=== PATIENT | female | born 1950 | race Caucasian/White ===

== ENCOUNTER 2016-03-23 13:14 | Outpatient (CLI) | payer MEDICAID | END 2016-03-23 13:15 | disposition home or self-care (01) | DX: D05.91 Unspecified type of carcinoma in situ of right breast (principal) ==

== ENCOUNTER 2016-11-19 06:48 | Outpatient (CLI) | payer MEDICARE, MEDICAID ==
[2016-11-19 18:09] LABS: BASOPHILS # (AUTO) 0.1 10^3/uL (0.0-0.1); BASOPHILS % (AUTO) 1.5 %; EOSINOPHILS # (AUTO) 0.3 10^3/uL (0.0-0.7); EOSINOPHILS % (AUTO) 4.9 %; HCT - HEMATOCRIT 40.2 % (37.0-47.0); HGB - HEMOGLOBIN 13.1 g/dL (12.0-16.0); LYMPHOCYTES # (AUTO) 1.7 10^3/uL (1.5-3.5); LYMPHOCYTES % (AUTO) 26.8 %; MEAN CORPUSCULAR HEMOGLOBIN 29.2 pg (27.0-31.0); MEAN CORPUSCULAR HGB CONC 32.5 g/dL (32.0-36.0); MEAN CORPUSCULAR VOLUME 89.6 fL (81.0-99.0); MEAN PLATELET VOLUME 10.7 fL (7.9-10.8); MONOCYTES # (AUTO) 0.6 10^3/uL (0.0-1.0); MONOCYTES % (AUTO) 10.5 %; NEUTROPHILS # (AUTO) 3.5 10^3/uL (1.5-6.6); NEUTROPHILS % (AUTO) 56.3 %; NUCLEATED RED BLOOD CELLS AUTO 0.1 /100WBC; RED BLOOD COUNT 4.48 10^6/uL (4.20-5.40); RED CELL DISTRIBUTION WIDTH 14.4 % (12.0-15.0); UNCORRECTED WHITE BLOOD COUNT 6.2 x10^3/uL; WHITE BLOOD COUNT 6.2 x10^3/uL (4.8-10.8)
[2016-11-19 18:32] LABS: ALBUMIN/GLOBULIN RATIO 1.5 (1.0-2.2); BILIRUBIN,TOTAL 0.4 mg/dL (0.2-1.0); BUN - BLOOD UREA NITROGEN 10 mg/dL (6-20); CALCIUM 9.4 mg/dL (8.5-10.3); CARBON DIOXIDE - CO2 26 mmol/L (21-32); CHLORIDE 103 mmol/L (101-111); CHOL/HDL RATIO 4.6 (<4.4); CHOLESTEROL 264 mg/dL; CREATININE 0.7 mg/dL (0.4-1.0); GFR - MDRD 84 (>89); GLUCOSE 93 mg/dL (70-100); HDL CHOLESTEROL 57 mg/dL; POTASSIUM 4.5 mmol/L (3.5-5.0); SODIUM 136 mmol/L (135-145); TOTAL PROTEIN 6.6 g/dL (6.7-8.2); TRIGLYCERIDES 183 mg/dL; VLDL CHOLESTEROL 37 mg/dL
== END 2016-11-19 06:49 | disposition home or self-care (01) ==
LOC: LAB.S 06:48
PROVIDERS: ATTEND Nurse Practitioner Family
DX: I10 Essential (primary) hypertension (principal); J44.9 Chronic obstructive pulmonary disease, unspecified
CPT/HCPCS: 36415; 80053; 80061; 84443; 85025

== ENCOUNTER 2017-04-03 14:04 | Outpatient (CLI) | payer MEDICARE, MEDICAID ==
--- NOTE | 2017-04-04 21:29 | Mammography Report ---
DATE OF SERVICE: 04/03/2017 DIGITAL SCREENING MAMMOGRAM: 04/03/2017 CLINICAL INDICATION: A 66-year-old with personal history of right breast cancer, status post lumpectomy and radiation therapy for screening. COMPARISON: 03/2016, 03/2015, 03/2014, 09/2013, 03/2013, 09/2012, 03/2012, 09/2011, 06/2011, 05/2011. TECHNIQUE: Routine CC and MLO projections were obtained of the breasts. The breasts demonstrate scattered fibroglandular densities bilaterally. Postoperative and posttreatment changes in the left breast are stable. A few punctate, typically benign calcifications are present. No suspicious masses, clustered microcalcifications, or regions of architectural distortion are identified. IMPRESSION: Benign findings. RECOMMENDATIONS: Routine annual screening unless otherwise clinically indicated. BIRADS category 2 benign findings. STANDARD QUALIFYING STATEMENTS 1. This examination was reviewed with the aid of Computed-Aided Detection (CAD). 2. A negative or benign imaging report should not delay biopsy if clinically suspicious findings are present. Consider surgical consultation if warranted. More than 5% of cancers are not identified by imaging. 3. Dense breasts may obscure an underlying neoplasm. TD: 04/04/2017 22:28
== END 2017-04-03 14:05 | disposition home or self-care (01) ==
LOC: DI.S 14:04
PROVIDERS: ATTEND Nurse Practitioner Family
DX: Z12.31 Encounter for screening mammogram for malignant neoplasm of breast (principal); Z85.3 Personal history of malignant neoplasm of breast
CPT/HCPCS: 77067

== ENCOUNTER → 2018-01-06 | Outpatient (CLI) | payer MEDICARE, MEDICAID ==
[2018-01-06 17:20] LABS: BASOPHILS # (AUTO) 0.1 10^3/uL (0.0-0.1); BASOPHILS % (AUTO) 1.2 %; EOSINOPHILS # (AUTO) 0.5 10^3/uL (0.0-0.7); EOSINOPHILS % (AUTO) 6.5 %; HGB - HEMOGLOBIN 13.7 g/dL (12.0-16.0); LYMPHOCYTES # (AUTO) 1.6 10^3/uL (1.5-3.5); MEAN CORPUSCULAR HEMOGLOBIN 29.9 pg (27.0-31.0); MEAN CORPUSCULAR VOLUME 90.6 fL (81.0-99.0); MEAN PLATELET VOLUME 11.2 fL (7.9-10.8); MONOCYTES # (AUTO) 0.9 10^3/uL (0.0-1.0); MONOCYTES % (AUTO) 11.6 %; NEUTROPHILS # (AUTO) 4.3 10^3/uL (1.5-6.6); NEUTROPHILS % (AUTO) 58.7 %; PLT - PLATELET COUNT 235 10^3/uL (130-450); RED BLOOD COUNT 4.58 10^6/uL (4.20-5.40); RED CELL DISTRIBUTION WIDTH 13.5 % (12.0-15.0); WHITE BLOOD COUNT 7.3 x10^3/uL (4.8-10.8)
[2018-01-06 17:48] LABS: ALBUMIN 3.9 g/dL (3.2-5.5); ALBUMIN/GLOBULIN RATIO 1.2 (1.0-2.2); ALKALINE PHOSPHATASE 55 IU/L (42-121); ALT ALANINE AMINOTRANSFERASE 16 IU/L (10-60); AST ASPARTATE AMINOTRANSFERASE 21 IU/L (10-42); BILIRUBIN,TOTAL 0.3 mg/dL (0.2-1.0); BUN - BLOOD UREA NITROGEN 12 mg/dL (6-20); CALCIUM 9.4 mg/dL (8.5-10.3); CARBON DIOXIDE - CO2 29 mmol/L (21-32); CHLORIDE 102 mmol/L (101-111); CHOL/HDL RATIO 4.4 (<4.4); CHOLESTEROL 279 mg/dL; CREATININE 0.8 mg/dL (0.4-1.0); GFR - MDRD 72 (>89); GLUCOSE 108 mg/dL (70-100); HDL CHOLESTEROL 64 mg/dL; LDL CHOLESTEROL,CALCULATED 177 mg/dL; LDL/HDL RATIO 2.8 (<4.4); SODIUM 137 mmol/L (135-145); TOTAL PROTEIN 7.2 g/dL (6.7-8.2); VLDL CHOLESTEROL 38 mg/dL
== END ==
LOC: LAB.S 13:43
PROVIDERS: ATTEND Nurse Practitioner Family
DX: I10 Essential (primary) hypertension (principal); F32.9 Major depressive disorder, single episode, unspecified
CPT/HCPCS: 36415; 80053; 80061; 83721; 84443; 85025

== ENCOUNTER 2018-03-09 12:01 | Outpatient (CLI) | payer MEDICARE, MEDICAID | END 2018-03-09 23:59 | disposition critical access hospital (66) | LOC: EMS 12:01 | PROVIDERS: ATTEND Surgery | DX: K62.5 Hemorrhage of anus and rectum (principal) | CPT/HCPCS: A0425; A0427 ==

== ENCOUNTER 2018-03-09 12:36 | Emergency (ER) | payer MEDICARE, MEDICAID ==
[2018-03-09] MEDS ORDERED: ONDANSETRON 4 MG/2 ML VIAL IVP STA (12:48)
[2018-03-09] MEDS ORDERED: MORPHINE 2 MG/ML CARPUJECT IVP STA (12:48)
[2018-03-09] MEDS ORDERED: SODIUM CHLORIDE 0.9% 1,000 ML IV ONE (12:48)
--- NOTE | 2018-03-09 12:50 | ED Physician Documentation ---
PD HPI ABD PAIN - Stated complaint Stated Complaint: ABD PX - Chief complaint Chief Complaint: Abd Pain - History obtained from History obtained from: Patient, EMS - History of Present Illness Timing - onset: Other (She been constipated for a few days but starting around 10:00 last night started to have severe abdominal cramps associated with vomiting and diarrhea. She has not vomited in almost 12 hours but the diarrhea continues and became grossly bloody this morning. She denies any fevers. No recent travel, sick contacts, or antibiotic use. She is a history of hysterectomy but no other abdominal surgeries or bowel problems.) Review of Systems Ten Systems: 10 systems reviewed and negative Constitutional: denies: Fever, Chills Eyes: reports: Reviewed and negative GI: reports: Abdominal Pain, Nausea, Vomiting, Diarrhea, Bloody / black stool. 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 HEENT: None Psych: Panic attacks Musculoskeletal: Osteoarthritis Derm: None - Past Surgical History Past Surgical History: Yes General: Colonoscopy Ortho: Spine surgery /EXHIBITION DESIGNER: section, Dilation and currettage, Tubal ligation, Hysterectomy, LEEP (Cervical surgery) HEENT: Tonsil/Adenoidectomy - Present Medications Home Medications: Ambulatory Orders Medication Instructions Recorded Confirmed Lisinopril 40 mg PO DAILY 07/16/12 12/10/16 Multivitamin [Multivitamins] 1 each PO DAILY 09/28/13 12/10/16 Carvedilol 12.5 mg PO BID 04/13/14 12/10/16 Calcium Carb, Citrate/Vit D3 600 mg PO BID 10/12/14 12/10/16 [Calcium + D3 ER Tablet] Albuterol 2.5 mg INH Q4H PRN 02/20/16 03/09/18 Albuterol Sulf [Ventolin Hfa 2 puffs INH Q4H PRN 02/20/16 03/09/18 Inhaler] Tiotropium [place] [Spiriva] 2 puffs IH DAILY 02/20/16 12/10/16 buPROPion [Wellbutrin Sr] 150 mg PO BID 12/10/16 12/10/16 Ciprofloxacin HCl [Cipro] 500 mg PO BID #20 tablet 03/09/18 Hydrocodone/Acetaminophen 1 - 2 each PO Q6H PRN #10 tablet 03/09/18 [Hydrocodon-Acetaminophen 5-325] Metronidazole [Flagyl] 500 mg PO BID #20 tablet 03/09/18 amLODIPine [Norvasc] 5 mg PO DAILY 03/09/18 03/09/18 - Allergies Allergies/Adverse Reactions: Allergies Allergy/AdvReac Type Severity Reaction Status Date / Time Latex, Natural Rubber Allergy Itching Verified 03/09/18 12:49 Penicillins Allergy Hives Verified 03/09/18 12:49 adhesive AdvReac Intermediate Rash Verified 03/09/18 12:49 - Social History Does the pt smoke?: Yes Smoking Status: Current every day smoker Does the pt drink ETOH?: No Does the pt have substance abuse?: No - Immunizations Immunizations are current?: No Immunizations: TDAP >10years/unknown PD ED PE NORMAL - Vitals Vital signs reviewed: Yes (Hypertensive and tachycardic) - General General: Alert and oriented X 3, No acute distress - HEENT HEENT: PERRL, EOMI - Neck Neck: Supple, no meningeal sign, No bony TTP - Cardiac Cardiac: RRR, No murmur - Respiratory Respiratory: No respiratory distress, Clear bilaterally - Abdomen Abdomen: Other (Soft with slightly diminished but active bowel tones and left- sided abdominal tenderness without surgical signs) - Back Back: No spinal TTP - Derm Derm: Normal color, Warm and dry - Extremities Extremities: No edema, No calf tenderness / cord - Neuro Neuro: Alert and oriented X 3, Normal speech - Psych Psych: Normal mood, Normal affect Results - Vitals Vitals: Vital Signs - 24 hr 03/09/18 12:39 Temperature 37 C Heart Rate 115 H Respiratory 20 Rate Blood Pressure 187/114 H O2 Saturation 98 Oxygen O2 Source Room air - Labs Labs: Microbiology 03/09/18 13:13 Campylobacter Antigen Assay - Final Stool Laboratory Tests 03/09/18 03/09/18 03/09/18 12:59 12:59 12:59 WBC 19.2 H RBC 5.32 Hgb 16.2 H Hct 48.2 H MCV 90.7 MCH 30.5 MCHC 33.6 RDW 13.9 Plt Count 246 MPV 9.1 Neut # (Auto) 16.5 H Lymph # (Auto) 1.0 L [place] # (Auto) 1.6 H Eos # (Auto) 0.0 Baso # (Auto) 0.1 Absolute Nucleated RBC 0.00 Nucleated RBC % 0.0 PT 12.1 INR 1.1 Sodium 135 Potassium 3.9 Chloride 98 L Carbon Dioxide 26 Anion Gap 11.0 BUN 15 Creatinine 0.9 Estimated GFR (MDRD) 63 L Glucose 157 H Lactic Acid Calcium 9.1 Total Bilirubin 0.8 AST 31 ALT 28 Alkaline Phosphatase 59 Total Protein 7.5 Albumin 4.0 Globulin 3.5 Albumin/Globulin Ratio 1.1 Lipase 24 Urine Color Urine Clarity Urine pH Ur Specific [place] Urine Protein Urine Glucose (UA) Urine Ketones Urine Occult Blood Urine Nitrite Urine Bilirubin Urine Urobilinogen Ur Leukocyte Esterase Ur Microscopic Review Urine Culture Comments 03/09/18 03/09/18 12:59 13:13 WBC RBC Hgb Hct MCV MCH MCHC RDW Plt Count MPV Neut # (Auto) Lymph # (Auto) [place] # (Auto) Eos # (Auto) Baso # (Auto) Absolute Nucleated RBC Nucleated RBC % PT INR Sodium Potassium Chloride Carbon Dioxide Anion Gap BUN Creatinine Estimated GFR (MDRD) Glucose Lactic Acid 1.4 Calcium Total Bilirubin AST ALT Alkaline Phosphatase Total Protein Albumin Globulin Albumin/Globulin Ratio Lipase Urine Color DARK YELLOW Urine Clarity CLEAR Urine pH 6.0 Ur Specific [place] 1.020 Urine Protein NEGATIVE Urine Glucose (UA) NEGATIVE Urine Ketones 15 H Urine Occult Blood NEGATIVE Urine Nitrite NEGATIVE Urine Bilirubin NEGATIVE Urine Urobilinogen 0.2 (NORMAL) Ur Leukocyte Esterase NEGATIVE Ur Microscopic Review NOT INDICATED Urine Culture Comments NOT INDICATED - Rads (name of study) CT A/P Radiology: EMP read contemporaneously (Transverse descending and sigmoid coliti s) PD MEDICAL DECISION MAKING - ED course ED course: 67-year-old woman with bloody diarrhea and left-sided abdominal tenderness cons istent with colitis which is corroborated on CT. Feeling better after meds and fluids here and will be treated with Cipro and Flagyl. Departure - Departure Disposition: 01 Home, Self Care Clinical Impression: Colitis Abdominal pain Qualifiers: Abdominal location: generalized Qualified Code(s): R10.84 - Generalized abdominal pain Condition: Good Record reviewed to determine appropriate education?: Yes Instructions: ED Diarrhea Bacterial Prescriptions: Ciprofloxacin HCl [Cipro] 500 mg PO BID #20 tablet Hydrocodone/Acetaminophen [Hydrocodon-Acetaminophen 5-325] 1 - 2 each PO Q6H PRN #10 tablet PRN Reason: pain Metronidazole [Flagyl] 500 mg PO BID #20 tablet Comments: Call your doctor to arrange a follow-up appointment, make the next available appointment. In the interim, return anytime if worse or if new symptoms develop. Your blood pressure was elevated today on check into the emergency department. This does not mean that you have hypertension, it is a common phenomenon to come to the emergency department and have elevated blood pressure. I recommend that you see your primary care physician within the week to have it rechecked when you are feeling better.
[2018-03-09 13:13] LABS: INR 1.1 (0.8-1.2); PT - PROTHROMBIN TIME 12.1 secs (9.9-12.6)
[2018-03-09 13:16] LABS: BASOPHILS # (AUTO) 0.1 10^3/uL (0.0-0.1); BASOPHILS % (AUTO) 0.3 %; EOSINOPHILS % (AUTO) 0.1 %; HGB - HEMOGLOBIN 16.2 g/dL (12.0-16.0); LYMPHOCYTES % (AUTO) 5.2 %; MEAN CORPUSCULAR HEMOGLOBIN 30.5 pg (27.0-31.0); MEAN CORPUSCULAR HGB CONC 33.6 g/dL (32.0-36.0); MEAN CORPUSCULAR VOLUME 90.7 fL (81.0-99.0); MEAN PLATELET VOLUME 9.1 fL (7.9-10.8); MONOCYTES # (AUTO) 1.6 10^3/uL (0.0-1.0); MONOCYTES % (AUTO) 8.4 %; NEUTROPHILS # (AUTO) 16.5 10^3/uL (1.5-6.6); PLT - PLATELET COUNT 246 10^3/uL (130-450); RED BLOOD COUNT 5.32 10^6/uL (4.20-5.40); RED CELL DISTRIBUTION WIDTH 13.9 % (12.0-15.0); WHITE BLOOD COUNT 19.2 x10^3/uL (4.8-10.8)
[2018-03-09 13:20] LABS: BILIRUBIN,URINE NEGATIVE (NEGATIVE); GLUCOSE, URINE (UA) NEGATIVE (NEGATIVE); KETONES,URINE (UA) 15 mg/dL (NEGATIVE); LEUKOCYTE ESTERASE, URINE NEGATIVE (NEGATIVE); NITRITE,URINE NEGATIVE (NEGATIVE); OCCULT BLOOD,URINE NEGATIVE (NEGATIVE); PROTEIN,URINE NEGATIVE (NEGATIVE); UROBILINOGEN,URINE 0.2 (NORMAL) E.U./dL (NORMAL)
[2018-03-09 13:20] LABS: ALBUMIN/GLOBULIN RATIO 1.1 (1.0-2.2); BILIRUBIN,TOTAL 0.8 mg/dL (0.2-1.0); CALCIUM 9.1 mg/dL (8.5-10.3); CREATININE 0.9 mg/dL (0.4-1.0); TOTAL PROTEIN 7.5 g/dL (6.7-8.2)
[2018-03-09 13:21] LABS: CLARITY,URINE CLEAR (CLEAR)
[2018-03-09] MEDS ORDERED: IOVERSOL 320 100 ML VIAL IVP ONE ×2 (13:33→14:02)
--- NOTE | 2018-03-09 14:59 | CT Report ---
Reason: IV only, abd pain w hematochezia Procedure Date: 03/09/2018 Accession Number: [id number] / [id number] Procedure: CT - Abdomen/Pelvis W/ CPT Code: FULL RESULT: EXAM: CT ABDOMEN AND PELVIS EXAM DATE: 03/09/2018 01:44 PM. CLINICAL HISTORY: Abd pain w hematochezia. COMPARISONS: None. TECHNIQUE: Routine helical CT imaging was performed through the abdomen and pelvis. IV contrast: OPTI 320 100mL. Enteric contrast: No. Reconstructions: Coronal and sagittal. In accordance with CT protocol optimization, one or more of the following dose reduction techniques were utilized for this exam: automated exposure control, adjustment of mA and/or KV based on patient size, or use of iterative reconstructive technique. FINDINGS: Lung Bases: Unremarkable. Liver: Probable hepatic steatosis. No focal parenchymal lesion demonstrated. Gallbladder/Bile Ducts: Unremarkable. Spleen: Normal. Pancreas: Atrophic. No other significant abnormality. Adrenal Glands: Normal. Kidneys: No significant abnormality. Peritoneal Cavity/Bowel: No ascites or pneumoperitoneum. No bowel obstruction or abnormal stool burden. Diffuse, low density colonic wall thickening and adjacent mild inflammatory stranding from the hepatic flexure to the rectosigmoid junction, most pronounced in the distal transverse colon. Possible appendicolith; otherwise normal appendix (coronal images 21-25). Pelvic Organs: Status post hysterectomy. The urinary bladder is unremarkable. Vasculature: Moderate atherosclerosis without aneurysm or other significant abnormality. Bones: Scoliosis and degenerative change. No acute osseous abnormality or aggressive osseous lesion. Other: None. IMPRESSION: Transverse, descending, and sigmoid colitis. RADIA
[2018-03-09] MEDS ORDERED: CIPROFLOXACIN 250 MG TABLET PO STA (15:07)
[2018-03-09] MEDS ORDERED: metroNIDAZOLE 250 MG TABLET PO STA (15:07)
[2018-03-09 15:44] VITALS: BP 152/82
== END 2018-03-09 15:25 | disposition home or self-care (01) ==
LOC: EDUNIT# → ED 12:36
DX: K52.9 Noninfective gastroenteritis and colitis, unspecified (principal); R10.84 Generalized abdominal pain; I10 Essential (primary) hypertension; F17.200 Nicotine dependence, unspecified, uncomplicated
CPT/HCPCS: 36415; 74177; 80053; 81003; 83605; 83690; 85025; 85610; 87045; 87046; 87493; 96361; 96374; 96375; 99283; A9270; Q9967; 81001; 87086

== ENCOUNTER 2018-03-24 08:00 | Outpatient (CLI) | payer MEDICARE, MEDICAID ==
[2018-03-24 18:11] LABS: BASOPHILS # (AUTO) 0.1 10^3/uL (0.0-0.1); BASOPHILS % (AUTO) 1.4 %; EOSINOPHILS # (AUTO) 0.5 10^3/uL (0.0-0.7); HGB - HEMOGLOBIN 14.2 g/dL (12.0-16.0); LYMPHOCYTES # (AUTO) 1.6 10^3/uL (1.5-3.5); LYMPHOCYTES % (AUTO) 18.3 %; MEAN CORPUSCULAR HEMOGLOBIN 30.1 pg (27.0-31.0); MEAN CORPUSCULAR HGB CONC 32.4 g/dL (32.0-36.0); MEAN PLATELET VOLUME 11.5 fL (7.9-10.8); MONOCYTES # (AUTO) 0.8 10^3/uL (0.0-1.0); MONOCYTES % (AUTO) 9.3 %; NEUTROPHILS # (AUTO) 5.8 10^3/uL (1.5-6.6); PLT - PLATELET COUNT 278 10^3/uL (130-450); RED CELL DISTRIBUTION WIDTH 14.5 % (12.0-15.0); WHITE BLOOD COUNT 8.9 x10^3/uL (4.8-10.8)
[2018-03-24 18:42] LABS: ALBUMIN 3.8 g/dL (3.2-5.5); ALBUMIN/GLOBULIN RATIO 1.2 (1.0-2.2); BILIRUBIN,TOTAL 0.4 mg/dL (0.2-1.0); CALCIUM 9.8 mg/dL (8.5-10.3); CREATININE 0.6 mg/dL (0.4-1.0)
== END 2018-03-24 23:59 | disposition home or self-care (01) ==
LOC: LAB.S 08:00
PROVIDERS: ATTEND Nurse Practitioner Family
DX: K52.9 Noninfective gastroenteritis and colitis, unspecified (principal)
CPT/HCPCS: 36415; 80053; 85025

== ENCOUNTER 2018-05-05 16:04 | Outpatient (CLI) | payer MEDICARE, MEDICAID ==
--- NOTE | 2018-05-06 08:14 | Mammography Report ---
Reason: MAMMOGRAPHIC SCREENING FOR BREAST CANCER Procedure Date: 05/05/2018 Accession Number: [id number] / [id number] Procedure: MARIE - Screening Mammo w/Julio CPT Code: FULL RESULT: EXAM: Screening Mammo w/Julio DATE: 05/05/2018 4:30 PM CLINICAL HISTORY: Screening encounter. Personal history of right breast cancer status post lumpectomy and radiation as well as personal history of lung cancer status post right upper lobectomy. TECHNIQUE: Bilateral CC and MLO views were obtained. COMPARISON: 04/03/2017 through 04/08/2014. FINDINGS: The breasts demonstrate scattered fibroglandular densities bilaterally. Posttreatment changes in the right breast are stable. No suspicious masses, clustered microcalcifications, or regions of architectural distortion are identified. IMPRESSION: Benign findings RECOMMENDATION: Routine annual screening unless otherwise clinically indicated. BIRADS CATEGORY 2: Benign findings STANDARD QUALIFYING STATEMENTS: 1. This examination was not reviewed with the aid of Computer-Aided Detection (CAD). 2. A negative or benign imaging report should not delay biopsy if clinically suspicious findings are present. Consider surgical consultation if warrented. More than 5% of cancers are not identified by imaging. 3. Dense breasts may obscure an underlying neoplasm. 4. This examination was reviewed with the aid of 3D breast imaging (tomosynthesis).
== END 2018-05-05 16:05 | disposition home or self-care (01) ==
LOC: DI 16:04
PROVIDERS: ATTEND Nurse Practitioner Family
DX: Z12.31 Encounter for screening mammogram for malignant neoplasm of breast (principal); Z85.3 Personal history of malignant neoplasm of breast; Z85.118 Personal history of other malignant neoplasm of bronchus and lung
CPT/HCPCS: 77063; 77067

== ENCOUNTER 2018-07-01 08:21 | Outpatient (CLI) | payer MEDICARE, MEDICAID ==
--- NOTE | 2018-07-01 11:38 | Ultrasound Report ---
Reason: CT- COLON WALL THICKENING FROM DISTAL Procedure Date: 07/01/2018 Accession Number: [id number] / [id number] Procedure: US - Arterial Visceral Complete CPT Code: FULL RESULT: EXAM: MESENTERIC/CELIAC ARTERY DOPPLER ULTRASOUND EXAM DATE: 07/01/2018 09:52 AM. CLINICAL HISTORY: CT- Colon wall thickening from distal. COMPARISON: None. TECHNIQUE: Real-time sonographic vascular imaging was performed by the formal waiter/waitress through the mesenteric arterial system with a linear transducer utilizing color-flow, Doppler flow and spectral analysis. Multiple inbound call center representative static images were saved for review. FINDINGS: The upper abdominal aorta is visually atherosclerotic without visualized aneurysm in the documented areas. The visualized celiac axis, SMA, hepatic artery and splenic artery are patent with peak systolic velocities as described. All waveforms demonstrate preserved brisk systolic upstrokes. Aorta: 71cm/sec. Celiac [place]: Proximal: 158.6 cm/sec. Mid: 168.7 cm/sec. Distal: 195.6 cm/sec. Hepatic Artery: 228 cm/sec.* Splenic Artery: 67.4 cm/sec. * Hepatic artery @ anthony hep 113 cm/sec. Splenic not seen @ lucinda axis. Superior Mesenteric Artery Proximal: 122.5 cm/sec. Mid: 108 cm/sec. Distal: 105.4 cm/sec. Inferior Mesenteric Artery: Not seen. IMPRESSION: Normal patency and waveforms of the above visualized visceral vasculature. RADIA
== END 2018-07-01 08:22 | disposition home or self-care (01) ==
LOC: DI 08:21
PROVIDERS: ATTEND Internal Medicine
DX: R93.5 Abnormal findings on diagnostic imaging of other abdominal regions, including retroperitoneum (principal)
CPT/HCPCS: 93975

== ENCOUNTER 2018-08-11 09:50 | Outpatient (CLI) | payer MEDICARE, MEDICAID ==
[2018-08-11 18:44] LABS: CHOL/HDL RATIO 3.2 (<4.4); CHOLESTEROL 202 mg/dL; HDL CHOLESTEROL 64 mg/dL; LDL CHOLESTEROL,CALCULATED 124 mg/dL; LDL/HDL RATIO 1.9 (<4.4); VLDL CHOLESTEROL 14 mg/dL
== END 2018-08-11 09:51 | disposition home or self-care (01) ==
LOC: LAB.F 09:50
PROVIDERS: ATTEND Nurse Practitioner
DX: E78.5 Hyperlipidemia, unspecified (principal)
CPT/HCPCS: 36415; 80061; 83721

== ENCOUNTER 2018-08-19 19:45 | Emergency (ER) | payer MEDICARE, MEDICAID ==
[2018-08-19 20:19] LABS: BILIRUBIN,URINE NEGATIVE (NEGATIVE); GLUCOSE, URINE (UA) NEGATIVE (NEGATIVE); KETONES,URINE (UA) 15 mg/dL (NEGATIVE); LEUKOCYTE ESTERASE, URINE TRACE (NEGATIVE); NITRITE,URINE NEGATIVE (NEGATIVE); OCCULT BLOOD,URINE NEGATIVE (NEGATIVE); PH,URINE 5.5 PH (5.0-7.5); PROTEIN,URINE NEGATIVE (NEGATIVE); UROBILINOGEN,URINE 0.2 (NORMAL) E.U./dL (NORMAL)
[2018-08-19 20:23] LABS: CLARITY,URINE CLEAR (CLEAR)
[2018-08-19 20:29] LABS: RBC,URINE 0-5 /HPF (0-5); SQUAMOUS EPITHELIAL CELL,UR FEW Squamous (<= Few)
[2018-08-19 20:30] LABS: BACTERIA,URINE Rare /HPF (None Seen)
[2018-08-19 20:39] LABS: BASOPHILS # (AUTO) 0.1 10^3/uL (0.0-0.1); BASOPHILS % (AUTO) 0.9 %; EOSINOPHILS # (AUTO) 0.6 10^3/uL (0.0-0.7); LYMPHOCYTES # (AUTO) 1.5 10^3/uL (1.5-3.5); LYMPHOCYTES % (AUTO) 13.9 %; MEAN CORPUSCULAR HEMOGLOBIN 29.6 pg (27.0-31.0); MEAN CORPUSCULAR HGB CONC 33.2 g/dL (32.0-36.0); MEAN CORPUSCULAR VOLUME 89.2 fL (81.0-99.0); MEAN PLATELET VOLUME 8.6 fL (7.9-10.8); MONOCYTES % (AUTO) 8.7 %; NEUTROPHILS % (AUTO) 71.5 %; PLT - PLATELET COUNT 200 10^3/uL (130-450); RED BLOOD COUNT 4.71 10^6/uL (4.20-5.40); RED CELL DISTRIBUTION WIDTH 13.3 % (12.0-15.0); WHITE BLOOD COUNT 11.1 x10^3/uL (4.8-10.8)
[2018-08-19 20:50] LABS: ALBUMIN 4.2 g/dL (3.2-5.5); ALBUMIN/GLOBULIN RATIO 1.3 (1.0-2.2); BILIRUBIN,TOTAL 0.8 mg/dL (0.2-1.0); CALCIUM 9.5 mg/dL (8.5-10.3); CREATININE 0.6 mg/dL (0.4-1.0); TOTAL PROTEIN 7.4 g/dL (6.7-8.2)
--- NOTE | 2018-08-19 21:56 | ED Physician Documentation ---
History of Present Illness - Stated complaint Stated Complaint: V/D/N BLOODY STOOL - Chief complaint Chief Complaint: Abd Pain - History obtained from History obtained from: Patient - History of Present Illness Timing: Today - Additonal information Additional information: This is a 67-year-old woman who presents with complaints that she developed abdominal pain this morning. She last ate around noon yesterday she had [employer] and fries from [employer]. She does not normally eat breakfast and got up this morning feeling pretty good and then suddenly around 930 she got very dizzy went into the bathroom, vomited and had watery diarrhea. Through the day she is developed some bright red blood in the diarrhea has had multiple episodes. She is concerned because she had colitis just after [place]. She was treated with antibiotics and referred for colonoscopy which she underwent at [facility]. She said the colonoscopy was clear. They also did some sort of abdominal ultrasound imaging and did not find anything there. Patient reports the pain now is more of a dull aching not nearly as severe as it was when she had a colitis. She is felt chilled to the day but did not check her temperature. She did have a very long day yesterday shopping all day with her daughter. She does complain of feeling some pressure in her bladder but not any burning with urination and no blood in the urine. No other illness. She does take Tylenol 3 and Flexeril for back pain and is on high blood pressure medications which she takes twice a day. She did not take her dosing tonight. Her only abdominal surgeries were . Review of Systems Constitutional: reports: Fever, Chills Nose: denies: Congestion Throat: denies: Sore throat Cardiac: denies: Chest pain / pressure, Palpitations Respiratory: denies: Dyspnea, Cough GI: reports: Abdominal Pain, Vomiting, Diarrhea. 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 HEENT: None Psych: Panic attacks Musculoskeletal: Osteoarthritis Derm: None - Past Surgical History Past Surgical History: Yes General: Colonoscopy Ortho: Spine surgery /INCINERATOR PLANT GENERAL SUPERVISOR: section, Dilation and currettage, Tubal ligation, Hysterectomy, LEEP (Cervical surgery) HEENT: Tonsil/Adenoidectomy - Present Medications Home Medications: Ambulatory Orders Medication Instructions Recorded Confirmed Lisinopril 40 mg PO DAILY 07/16/12 12/10/16 Multivitamin [Multivitamins] 1 each PO DAILY 09/28/13 12/10/16 Carvedilol 12.5 mg PO BID 04/13/14 12/10/16 Calcium Carb, Citrate/Vit D3 600 mg PO BID 10/12/14 12/10/16 [Calcium + D3 ER Tablet] Albuterol 2.5 mg INH Q4H PRN 02/20/16 03/09/18 Albuterol Sulf [Ventolin Hfa 2 puffs INH Q4H PRN 02/20/16 03/09/18 Inhaler] Tiotropium [place] [Spiriva] 2 puffs IH DAILY 02/20/16 12/10/16 buPROPion [Wellbutrin Sr] 150 mg PO BID 12/10/16 12/10/16 Ciprofloxacin HCl [Cipro] 500 mg PO BID #20 tablet 03/09/18 Hydrocodone/Acetaminophen 1 - 2 each PO Q6H PRN #10 tablet 03/09/18 [Hydrocodon-Acetaminophen 5-325] Metronidazole [Flagyl] 500 mg PO BID #20 tablet 03/09/18 amLODIPine [Norvasc] 5 mg PO DAILY 03/09/18 03/09/18 - Allergies Allergies/Adverse Reactions: Allergies Allergy/AdvReac Type Severity Reaction Status Date / Time Latex, Natural Rubber Allergy Itching Verified 03/09/18 12:49 Penicillins Allergy Hives Verified 03/09/18 12:49 adhesive AdvReac Intermediate Rash Verified 03/09/18 12:49 - Social History Does the pt smoke?: Yes Smoking Status: Current every day smoker Does the pt drink ETOH?: No Does the pt have substance abuse?: No - Immunizations Immunizations are current?: No Immunizations: TDAP >10years/unknown - POLST Patient has POLST: No PD ED PE NORMAL - Vitals Vital signs reviewed: Yes (Very pleasant 67-year-old woman who is not in acute distress.) - General General: Alert and oriented X 3, No acute distress, Well developed/nourished - HEENT HEENT: Atraumatic, PERRL, Moist mucous membranes - Neck Neck: No adenopathy - Cardiac Cardiac: RRR, No murmur - Respiratory Respiratory: No respiratory distress, Clear bilaterally - Abdomen Abdomen: Normal bowel sounds, Soft, Other (Minimal tenderness with palpation to the left side of the abdomen.) - Derm Derm: Normal color, Warm and dry, No rash - Extremities Extremities: No edema - Neuro Neuro: Alert and oriented X 3, Normal speech, Other (No gross neurological deficits.) - Psych Psych: Normal mood, Normal affect Results - Vitals Vitals: Vital Signs - 24 hr 08/19/18 08/19/18 08/19/18 19:49 19:58 22:16 Temperature 36.8 C Heart Rate 93 93 98 Respiratory 17 17 18 Rate Blood Pressure 186/82 H 186/82 H 200/99 H O2 Saturation 97 97 96 Oxygen O2 Source Room air - Labs Labs: Laboratory Tests 08/19/18 08/19/18 08/19/18 20:10 20:31 20:31 WBC 11.1 H RBC 4.71 Hgb 14.0 Hct 42.0 MCV 89.2 MCH 29.6 MCHC 33.2 RDW 13.3 Plt Count 200 MPV 8.6 Neut # (Auto) 8.0 H Lymph # (Auto) 1.5 [place] # (Auto) 1.0 Eos # (Auto) 0.6 Baso # (Auto) 0.1 Absolute Nucleated RBC 0.01 Nucleated RBC % 0.1 Sodium 135 Potassium 3.9 Chloride 99 L Carbon Dioxide 23 Anion Gap 13.0 BUN 12 Creatinine 0.6 Estimated GFR (MDRD) 100 Glucose 121 H Calcium 9.5 Total Bilirubin 0.8 AST 23 ALT 19 Alkaline Phosphatase 52 Total Protein 7.4 Albumin 4.2 Globulin 3.2 Albumin/Globulin Ratio 1.3 Lipase 21 L Urine Color YELLOW Urine Clarity CLEAR Urine pH 5.5 Ur Specific [place] 1.020 Urine Protein NEGATIVE Urine Glucose (UA) NEGATIVE Urine Ketones 15 H Urine Occult Blood NEGATIVE Urine Nitrite NEGATIVE Urine Bilirubin NEGATIVE Urine Urobilinogen 0.2 (NORMAL) Ur Leukocyte Esterase TRACE H Urine RBC 0-5 Urine WBC 0-3 Ur Squamous Epith Cells FEW Squamous Urine Bacteria Rare Ur Microscopic Review INDICATED Urine Culture Comments INDICATED PD MEDICAL DECISION MAKING - ED course Complexity details: d/w patient, d/w family ED course: Patient does have mild elevation of the white blood cell count of 11.1. Urinalysis had some leukocyte esterase and culture has been set up. I did review her ED visit report with CT scan showing diffuse colitis of the descen ding colon. Her colonoscopy report is not available, but she reports that she was not told she had UC or Crohn's. I discussed with her that with her current presentation I would not put her immediately on antibiotics. We talked about taking probiotics, eating bland foods and avoiding Cade's. Follow-up with her primary care provider for further management if her symptoms persist to return to the emergency department if they are worsening. Departure - Departure Disposition: Home, Self Care Clinical Impression: Hematochezia Vomiting Qualifiers: Vomiting type: unspecified Vomiting Intractability: non-intractable Nausea presence: unspecified Qualified Code(s): R11.10 - Vomiting, unspecified Diarrhea Qualifiers: Diarrhea type: unspecified type Qualified Code(s): R19.7 - Diarrhea, unspecified Condition: Good Instructions: ED Diet Vomiting Diarrhea, ED Vomiting Diarrhea Nonspecific Ad Follow-Up: Virginia Sinclair ARNP [Primary Care Provider] - Comments: Eat bland foods. I would encourage you to use probiotic, Deepak FloraMend or a capsule that has 4-5 active cultures would be sufficient. Return to the emergency department if you have increasing pain, develop a fever or worsening bloody diarrhea. Otherwise follow-up with your primary care provider for reevaluation. Your urine has been cultured and if you need antibiotics she should be contacted. Discharge Date/Time: 08/19/18 22:37
[2018-08-19 22:18] VITALS: BP 200/99
[2018-08-19] MEDS ORDERED: KETOROLAC 60 MG/2 ML VIAL IM STA (22:24)
[2018-08-19] MEDS ORDERED: ONDANSETRON ODT 4 MG Prepack 2 TL PRN (22:24)
== END 2018-08-19 22:37 | disposition home or self-care (01) ==
LOC: ED 19:45
DX: K92.1 Melena (principal); R11.10 Vomiting, unspecified; R19.7 Diarrhea, unspecified; Z87.19 Personal history of other diseases of the digestive system; I10 Essential (primary) hypertension; F17.200 Nicotine dependence, unspecified, uncomplicated
CPT/HCPCS: 80053; 81001; 81003; 83690; 85025; 87086; 96372; 99283

== ENCOUNTER 2019-04-24 10:32 | Outpatient (CLI) | payer MEDICARE, MEDICAID ==
--- NOTE | 2019-04-28 10:04 | Mammography Report ---
Reason: ROUTINE MAMMO Procedure Date: 04/24/2019 Accession Number: [id number] / [id number] Procedure: MARIE - Screening Mammo w/Julio CPT Code: Final Report FULL RESULT: EXAM: Screening Mammo w/Julio DATE: 04/24/2019 11:15 AM CLINICAL HISTORY: Screening encounter. Personal history of right breast cancer status post lumpectomy in 2011 with radiation therapy. Family history of breast cancer in a sister at the age of 50. TECHNIQUE: (B) - Bilateral CC and MLO views were obtained. COMPARISON: 05/05/2018 through 09/17/2012. PARENCHYMAL PATTERN: (A) - The breast(s) demonstrate(s) scattered fibroglandular densities. FINDINGS: Posttreatment changes in the right breast are stable. There are no suspicious masses, calcifications, or areas of distortion. IMPRESSION: Benign findings. BI-RADS category 2. RECOMMENDATION: (ANNUAL) - Recommend routine annual screening mammography. BI-RADS CATEGORY: (2) - Benign Findings. STANDARD QUALIFYING STATEMENTS: 1. This examination was not reviewed with the aid of Computer-Aided Detection (CAD). 2. A negative or benign imaging report should not preclude biopsy if clinically suspicious findings are present. 3. Dense breasts may obscure an underlying neoplasm. 4. This examination was reviewed with the aid of 3D breast imaging (tomosynthesis).
== END 2019-04-24 10:33 | disposition home or self-care (01) ==
LOC: DI 10:32
DX: Z12.31 Encounter for screening mammogram for malignant neoplasm of breast (principal); Z85.3 Personal history of malignant neoplasm of breast; Z80.3 Family history of malignant neoplasm of breast
CPT/HCPCS: 77063; 77067